=== PATIENT | female | born 1975 | race Two or more races ===

== ENCOUNTER 2019-02-08 10:00 | Outpatient (CLI) | payer OTHER | END 2019-02-08 10:16 | disposition home or self-care (01) | LOC: SONOGRAMA 10:00 | DX: E04.1 Nontoxic single thyroid nodule (principal) ==

== ENCOUNTER 2022-07-08 11:09 | Outpatient (CLI) | payer OTHER | END 2022-07-08 11:12 | disposition home or self-care (01) | LOC: SONOGRAMA 11:09 | PROVIDERS: ATTEND Pathology Anatomic Pathology & Clinical Pathology | DX: D34 Benign neoplasm of thyroid gland (principal); E04.9 Nontoxic goiter, unspecified; E04.2 Nontoxic multinodular goiter ==

== ENCOUNTER 2024-07-02 10:10 | Emergency (ER) | payer OTHER ==
[~2024-07-02] VITALS: Ht 167.6 cm; Wt 77.1 kg
[2024-07-02] MEDS ORDERED: OMEPRAZOLE20 MG PO (10:35)
[2024-07-02] MEDS ORDERED: ALDACTONE100 MG PO (10:36)
[2024-07-02] MEDS ORDERED: VALTREX (10:37)
[2024-07-02] MEDS ORDERED: LOVAZA1 GM PO (10:37)
[2024-07-02] MEDS ORDERED: SINGULAIR10 MG PO (10:38)
[2024-07-02] MEDS ORDERED: LIPITOR20 MG PO (10:38)
[2024-07-02] MEDS ORDERED: PEPCID20 MG PO (10:38)
[2024-07-02] MEDS ORDERED: OSEL75CA PO ×2 (10:39→15:02)
[2024-07-02] MEDS ORDERED: TRAZODONE HCL150 MG (10:39)
[2024-07-02 12:07] LABS: HEMATOCRIT 39.1 % (36.0-45.00); HEMOGLOBIN 13.3 g/dL (12.0-15.00); MEAN CELL VOLUME 90.9 fL (80.00-100.00); MEAN CORPUSCULAR HEMOGLOBIN 30.9 pg (27.00-32.0); PLATELET COUNT 400 K/uL (150-450); RED CELL DISTRIBUTION WIDTH 12.9 % (11.5-14.5)
[2024-07-02] MEDS ORDERED: ACETAMINOPHEN500 M1 PO (15:02)
[2024-07-02] MEDS ORDERED: GILTUSS HONEY118 ML PO (15:02)
== END 2024-07-02 16:29 | disposition home or self-care (01) ==
LOC: ER 10:13
PROVIDERS: Preventive Medicine Public Health & General Preventive Medicine
DX: J10.1 Influenza due to other identified influenza virus with other respiratory manifestations (principal); R05.9 Cough, unspecified; Z20.822 Contact with and (suspected) exposure to COVID-19; I10 Essential (primary) hypertension; Z88.6 Allergy status to analgesic agent